=== PATIENT | female | born 1975 | race Caucasian/White ===

== ENCOUNTER 2019-04-25 19:24 | Emergency (ER) | payer MEDICAID ==
[~2019-04-25] VITALS: Ht 160 cm; Wt 57.7 kg
[2019-04-25 19:28] VITALS: BP 130/89
[2019-04-25] MEDS ORDERED: ACETAMINOPHEN EXTRA STRENGTH 500 MG TAB PO ONE (20:15)
[2019-04-25 21:54] VITALS: BP 112/66
== END 2019-04-25 21:54 | disposition home or self-care (01) ==
LOC: MED 19:24
DX: M94.0 Chondrocostal junction syndrome [Tietze] (principal); K21.9 Gastro-esophageal reflux disease without esophagitis; Z90.89 Acquired absence of other organs
CPT/HCPCS: 71045; 99283; Q0092

== ENCOUNTER 2022-07-01 15:48 | Emergency (ER) | payer MEDICAID ==
[~2022-07-01] VITALS: Ht 160 cm; Wt 68.0 kg
[2022-07-01 16:20] VITALS: BP 110/76
--- NOTE | 2022-07-01 16:25 | NUR ---
47/F WALKED IN C/O SORE THROAT ACCOMPANIED BY COUGH ONSET 2 DAYS. DENIES FEVER, AFEBRILE AT TRIAGE. STATES TAKING COUGH SYRUP @ 10 AM TODAY WITH NO RELIEF. CORINNA, COVID, AND STREP SWAB COLLECTED AND SENT TO LAB PMH: NONE
[2022-07-01] MEDS ORDERED: BENZ150C2 PO (16:39)
[2022-07-01] MEDS ORDERED: DEXT1LOZ11 MM (16:39)
[2022-07-01] MEDS ORDERED: PHEN177S38 MM (16:39)
== END 2022-07-01 16:45 | disposition home or self-care (01) ==
LOC: MED 15:48
DX: J02.9 Acute pharyngitis, unspecified (principal); R05.9 Cough, unspecified; Z20.822 Contact with and (suspected) exposure to COVID-19; Z79.899 Other long term (current) drug therapy
CPT/HCPCS: 87081; 99283